=== PATIENT | male | born 1985 | race Caucasian/White ===

== ENCOUNTER → 2017-08-13 | Outpatient (CLI) | payer OTHER ==
[~2017-08-13] MED LIST: LORTAB 5/500 501 TAB PO; NO HOME MEDICATIONS; ZOFRAN 4MG T4 MG/TAB PO
== END ==
LOC: COL.RAD 07:30
DX: R91.1 Solitary pulmonary nodule (principal)

== ENCOUNTER → 2018-01-28 | Outpatient (CLI) | payer OTHER | LOC: COL.RAD 08:00 | DX: R91.1 Solitary pulmonary nodule (principal) | CPT/HCPCS: Q9967 ==

== ENCOUNTER 2021-03-26 23:54 | Emergency (ER) | payer OTHER ==
[~2021-03-26] VITALS: Ht 180.3 cm; Wt 123.8 kg
[2021-03-27] MEDS ORDERED: FLONASEALLERGY INH (00:16)
[2021-03-27 01:00] LABS: BASO % 0.4 % (0.0-2.0); EOS % 0.2 % (0-4.0); GRAN # 7.4 K/mm3 (1.4-6.5); GRAN % 71.1 % (42.2-75.2); HEMATOCRIT 49.3 % (42.0-52.0); HEMOGLOBIN 16.4 g/dl (13.5-18.0); LYMPH # 1.6 K/mm3 (1.2-3.4); LYMPH % 15.7 % (20.0-51.0); MEAN CELL VOLUME 87 fl (80.0-100.0); MEAN CORPUSCULAR HEMOGLOBIN 29 pg (27.0-31.0); MEAN CORPUSCULAR HGB CONC 33 g/dl (33.0-37.0); MEAN PLATELET VOLUME 9.2 fl (7.4-10.4); MONO # 1.3 K/mm3 (0.1-0.6); MONO % 12.1 % (1.7-9.3); PLATELET COUNT 312 K/mm3 (130-400); RED BLOOD COUNT 5.65 M/mm3 (4.20-5.60); REDCELL DISTRIBUTION WIDTH-CV 13.4 % (11.5-14.5)
[2021-03-27 01:20] LABS: BILIRUBIN,TOTAL 1.1 mg/dL (0.2-1.2); CALCIUM 9.5 mg/dL (8.4-10.2); CREATININE, serum 0.83 mg/dL (0.72-1.25); POTASSIUM 3.3 mmol/L (3.5-4.5); TOTAL PROTEIN 7.1 gm/dL (6.2-8.1)
[2021-03-27] MEDS ORDERED: ZOFRAN ODT4 MG PO (01:38)
[2021-03-27 01:45] VITALS: BP 142/100; PULSE 86; TEMP 97.1
== END 2021-03-27 01:55 | disposition home or self-care (01) ==
LOC: COL.ER 23:54
PROVIDERS: Physician Assistant
DX: R11.2 Nausea with vomiting, unspecified (principal); R19.7 Diarrhea, unspecified; Z20.822 Contact with and (suspected) exposure to COVID-19
CPT/HCPCS: J2405; J7030